=== PATIENT | female | born 1960 | race Caucasian/White ===

== ENCOUNTER 2022-09-19 00:59 | Day surgery (SDC) | payer OTHER, SELFPAY ==
[2022-09-06 15:39] VITALS: BMI 59.1
[2022-09-19 09:35] VITALS: BP 129/80; PULSE 104; RESP 18; TEMP 36.2; O2SAT 98
[2022-09-19] MEDS: LACTATED RINGERS 1,000 ML 150 ML IV CONT (09:38)
--- NOTE | 2022-09-19 10:12 | WPDANESEPPF ---
Anes - Initial Pre Proc Eval Procedure: Operation Date: 09/19/22 11:00 Proposed Procedures p Esophagogastroduodenoscopy & Screening Colonoscopy - Gerardo Juarez MD Date/Time: 09/19/22 10:12 Surgeon: Gerardo Juarez MD Pre Op Diagnosis: vomiting, GERD; neoplasm screening Patient Data Age: 61 Gender: F Height: 1.6 m Weight: 108.7 kg Last Vital Signs Temp 97.1 F L 09/19/22 09:35 Pulse 104 H 09/19/22 09:35 Resp 18 09/19/22 09:35 BP 129/80 09/19/22 09:35 Pulse Ox 98 09/19/22 09:35 O2 Del Method Room Air 09/19/22 09:35 Allergies Allergy/AdvReac Type Severity Reaction Status Date / Time clindamycin Allergy Intermediate Rash Verified 09/19/22 09:34 Sulfa (Sulfonamide Allergy Intermediate Unknown Verified 09/19/22 09:34 Antibiotics) Home Medications Medication Instructions Recorded Confirmed Type aspirin 81 mg chewable tablet 81 mg PO DAILY 06/30/22 09/19/22 History fluticasone propionate 50 2 spray intranasal HS 06/30/22 09/19/22 History mcg/actuation nasal spray,suspension (Flonase Allergy Relief) alprazolam 0.5 mg tablet 0.5 mg PO QHS PRN anxiety #30 tabs 07/21/22 09/19/22 Rx fluoxetine 40 mg capsule 40 mg PO DAILY #90 caps 07/21/22 09/19/22 Rx lisinopril 2.5 mg tablet 2.5 mg PO DAILY #90 tabs 07/21/22 09/19/22 Rx loratadine-pseudoephedrine ER 10 1 tablet PO DAILY #30 tabs 07/21/22 09/19/22 Rx mg-240 mg tablet,extended [id number] (Claritin-D 24 Hour) esomeprazole magnesium 20 mg 20 mg PO BID #60 caps 08/01/22 09/19/22 Rx capsule,delayed release docusate sodium 100 mg capsule 100 mg PO DAILY 09/06/22 09/19/22 History (Colace) omega-3 fatty acids 1 cap PO DAILY 09/06/22 09/19/22 History Patient hx anesthesia problems: none Family hx anesthesia problems: none Results Review: All pre-operative results and documents have been reviewed as part of the pre-operative evaluation. [facility] Past Medical History Medical History Abscess of chest wall Allergic rhinitis Anxiety Body mass index [BMI] 38.0-38.9, adult (03/19/17) Gastroesophageal reflux disease Hypertension Keratosis Skin neoplasm Family History Family History Father Cerebrovascular accident Other Hypertension Social History Social History Smoking status: Never smoker Second hand tobacco smoke exposure: No Alcohol intake: never Substance use: never Substance use type: does not use Lack of Transportation: No Lack of Food: Never True Current Housing: I Have Housing Concerned About Future Housing: No Difficulty Paying Gas/Electric Bills: No Difficulty Paying for Meds: No Currently Unemployed: No Education: High School Diploma/GED Difficulty w/ Childcare or Family Care: No Living arrangements: with family Gender identity (if verbalized by the patient): Female Sexual Orientation (if Verbalized by the Patient): Straight or Heterosexual Spiritual care concerns: No Anes - Eval Final PreProcedure Day of Procedure 09/19/22 10:12 Patient weight: morbidly obese Airway: Mallampati scale class III ASA classification: III Anesthesia type and monitoring: general GIVS and standard monitoring Results Review: All pre-operative results and documents have been reviewed as part of the pre-operative evaluation. Informed Consent: The patient's anesthetic plan and its attendant risks and benefits were discussed with the patient/family/POA. Questions were solicited and answers provided to the satisfaction of the patient/family/POA.
--- NOTE | 2022-09-19 10:56 | PM.HPGS ---
History of Present Illness History of Present Illness Consent: Risks, benefits, and alternatives have been discussed and questions answered. Patient agrees to proceed with procedure. Chief complaint: vomiting, GERD; neoplasm screening Narrative: Vanna Garcia is a 61 year old female with gerd despite using nexium bid, never had scopes Review of Systems Constitutional: Constitutional: Denies headache(s) and Denies weakness Eyes: Eyes: Denies blurry vision ENT: Reports Normal hearing present, Denies headache(s) and Denies neck pain Cardiovascular: Cardiovascular: Denies chest pain and Denies dyspnea Respiratory: Respiratory: Denies dyspnea Gastrointestinal: Gastrointestinal: Reports no additional gastrointestinal complaints Genitourinary: Genitourinary: Denies dysuria Musculoskeletal: Musculoskeletal: Denies neck pain Integumentary/Breasts: Skin/Breast: Denies dry skin Neurologic: Reports Normal hearing present, Denies headache(s) and Denies weakness Psychiatric: Psychiatric: Denies anxiety Endocrine: Endocrine: Denies change in body appearance Hematologic/Lymphatic: Hematologic/Lymphatic: Denies easy bleeding Allergic/Immunologic: Allergic/Immunologic: Denies urticaria PMFSH Past Medical History Medical History (Updated 09/19/22 @ 10:56 by Gerardo Juarez MD) Abscess of chest wall Allergic rhinitis Anxiety Body mass index [BMI] 38.0-38.9, adult (03/19/17) Colon cancer screening Gastroesophageal reflux disease Hypertension Keratosis Skin neoplasm Family History Family History Father Cerebrovascular accident Other Hypertension Social History Social History Smoking status: Never smoker Second hand tobacco smoke exposure: No Alcohol intake: never Substance use: never Substance use type: does not use Lack of Transportation: No Lack of Food: Never True Current Housing: I Have Housing Concerned About Future Housing: No Difficulty Paying Gas/Electric Bills: No Difficulty Paying for Meds: No Currently Unemployed: No Education: High School Diploma/GED Difficulty w/ Childcare or Family Care: No Living arrangements: with family Gender identity (if verbalized by the patient): Female Sexual Orientation (if Verbalized by the Patient): Straight or Heterosexual Spiritual care concerns: No Meds Home Medications and Allergies Home Medications Medication Instructions Recorded Confirmed Type aspirin 81 mg chewable tablet 81 mg PO DAILY 06/30/22 09/19/22 History fluticasone propionate 50 2 spray intranasal HS 06/30/22 09/19/22 History mcg/actuation nasal spray,suspension (Flonase Allergy Relief) alprazolam 0.5 mg tablet 0.5 mg PO QHS PRN anxiety #30 tabs 07/21/22 09/19/22 Rx fluoxetine 40 mg capsule 40 mg PO DAILY #90 caps 07/21/22 09/19/22 Rx lisinopril 2.5 mg tablet 2.5 mg PO DAILY #90 tabs 07/21/22 09/19/22 Rx loratadine-pseudoephedrine ER 10 1 tablet PO DAILY #30 tabs 07/21/22 09/19/22 Rx mg-240 mg tablet,extended [id number] (Claritin-D 24 Hour) esomeprazole magnesium 20 mg 20 mg PO BID #60 caps 08/01/22 09/19/22 Rx capsule,delayed release docusate sodium 100 mg capsule 100 mg PO DAILY 09/06/22 09/19/22 History (Colace) omega-3 fatty acids 1 cap PO DAILY 09/06/22 09/19/22 History Allergies Allergy/AdvReac Type Severity Reaction Status Date / Time clindamycin Allergy Intermediate Rash Verified 09/19/22 09:34 Sulfa (Sulfonamide Allergy Intermediate Unknown Verified 09/19/22 09:34 Antibiotics) Vital Signs Vital Signs - 24 hr 09/19/22 09:35 Temperature 97.1 F L Pulse Rate 104 H Respiratory Rate 18 Blood Pressure 129/80 Pulse Oximetry 98 Oxygen Delivery Room Air Exam Const: General: comfortable and no acute distress HENMT: Face/Nose/Sinus: Normal nares present Eyes: Gener
--- NOTE | 2022-09-19 11:08 | SUR.OPER ---
EGD: [id number] COLON: [id number]
[2022-09-19 11:23] VITALS: BP 120/95; PULSE 95; RESP 16; O2SAT 94
[2022-09-19 11:33] VITALS: BP 125/74; PULSE 76; RESP 23; O2SAT 96
[2022-09-19 11:43] VITALS: BP 125/74; PULSE 76; RESP 23; O2SAT 96
== END 2022-09-19 12:02 | disposition home or self-care (01) ==
PROVIDERS: PCP Physician Assistant Medical; Visit Provider Internal Medicine Gastroenterology
PROC: 0DJ08ZZ Inspection of Upper Intestinal Tract, Via Natural or Artificial Opening Endoscopic (ICD-10-PCS; CPT 43235; principal; 2022-09-19 11:00)
DX: Z12.11 Encounter for screening for malignant neoplasm of colon (principal); K21.9 Gastro-esophageal reflux disease without esophagitis; K63.5 Polyp of colon; K64.8 Other hemorrhoids; K57.30 Diverticulosis of large intestine without perforation or abscess without bleeding; K44.9 Diaphragmatic hernia without obstruction or gangrene; F41.9 Anxiety disorder, unspecified; I10 Essential (primary) hypertension; E66.01 Morbid (severe) obesity due to excess calories; Z68.41 Body mass index [BMI] 40.0-44.9, adult; Z79.82 Long term (current) use of aspirin; Z79.899 Other long term (current) drug therapy; Z82.49 Family history of ischemic heart disease and other diseases of the circulatory system
CPT/HCPCS: 43239; 45385; 88305; J2704; J7120